=== PATIENT | female | born 1960 | race African-American/Black ===

== ENCOUNTER 2020-03-12 12:35 | Day surgery (SDC) | payer MEDICARE, OTHER ==
[2020-03-12] MEDS ORDERED: Sodium Chloride 0.9(Preservative Free) 10 ML IJ ONE (12:36)
[2020-03-12] MEDS ORDERED: Depo-Medrol 40 MG/ML IM ONE (12:36)
[2020-03-12] MEDS ORDERED: DIPRIVAN 200 MG/20 ML IV ONE (14:45)
[2020-03-12] MEDS ORDERED: Ketamine HCl 50 MG/ML ONE (14:45)
[2020-03-12] MEDS ORDERED: Lactated Ringers 1,000 ML IV ONE (15:57)
--- NOTE | 2020-03-12 16:40 | XRAY ---
Indication: Right L4-S1 transforaminal MOOKIE. Intraoperative fluoroscopy provided for 48 seconds. 4 digital spot images submitted for interpretation demonstrates posterior needle tips projecting over the expected right L4 and L5 nerve roots. Small amount of contrast injected for needle tip placement. Correlate with intraoperative findings/report. Incidental bilateral L4-S1 posterior spinal hardware.
--- NOTE | 2020-03-12 16:45 | XRAY ---
48 seconds of fluoroscopy was used in surgery for a right L4-L5 and L5-S1 transforaminal MOOKIE.
== END 2020-03-12 15:12 | disposition home or self-care (01) ==
LOC: SDC-PAIN 12:35
PROVIDERS: ATTEND Psychiatry & Neurology Pain Medicine
DX: M54.16 Radiculopathy, lumbar region (principal); I10 Essential (primary) hypertension; F41.8 Other specified anxiety disorders; Z79.899 Other long term (current) drug therapy
CPT/HCPCS: 64479; 64480; 72100; 77003; J1030; J2704; Q9966

== ENCOUNTER 2020-04-30 13:04 | Day surgery (SDC) | payer MEDICARE ==
[2020-04-30] MEDS ORDERED: Sodium Chloride 0.9(Preservative Free) 10 ML IJ ONE (13:05)
[2020-04-30] MEDS ORDERED: Depo-Medrol 40 MG/ML IM ONE (13:05)
[2020-04-30] MEDS ORDERED: Ketamine HCl 50 MG/ML ONE (14:23)
[2020-04-30] MEDS ORDERED: DIPRIVAN 200 MG/20 ML IV ONE ×2 (14:23→14:39)
[2020-04-30] MEDS ORDERED: Xylocaine-Mpf 2% 5 Ml Vial ONE (14:29)
[2020-04-30] MEDS ORDERED: TRANDATE 20 MG/4 ML SYRINGE IV ONE (14:47)
--- NOTE | 2020-04-30 15:11 | XRAY ---
Indication: Left L4-S1 transforaminal MOOKIE. Intraoperative fluoroscopy provided for 1 minute 18 seconds. 6 digital spot images submitted for interpretation demonstrates posterior needle tips projecting over the expected left L4 and L5 nerve roots. Small amount of contrast injected for needle tip placement. Correlate with intraoperative findings/report. Incidental bilateral L4-S1 posterior spinal hardware.
--- NOTE | 2020-04-30 15:20 | XRAY ---
1 minute and 18 seconds fluoroscopy time in surgery for left L4-S1 transforaminal MOOKIE.
[2020-04-30] MEDS ORDERED: Lactated Ringers 1,000 ML IV ONE (16:20)
== END 2020-04-30 15:59 | disposition home or self-care (01) ==
LOC: SDC-PAIN 13:04
PROVIDERS: ATTEND Psychiatry & Neurology Pain Medicine
DX: M54.16 Radiculopathy, lumbar region (principal); I10 Essential (primary) hypertension; F41.8 Other specified anxiety disorders; Z79.899 Other long term (current) drug therapy
CPT/HCPCS: 64483; 64484; 72100; 77003; J1030; J2704; Q9966

== ENCOUNTER 2020-09-10 12:06 | Day surgery (SDC) | payer MEDICARE ==
[2020-09-10] MEDS ORDERED: Depo-Medrol 40 MG/ML IM ONE (12:07)
[2020-09-10] MEDS ORDERED: BUPIVACAINE 0.5% VIAL IJ ONE (12:07)
[2020-09-10] MEDS ORDERED: DIPRIVAN 200 MG/20 ML IV ONE (13:23)
--- NOTE | 2020-09-10 14:28 | XRAY ---
Indication: Right knee injection. Intraoperative fluoroscopy provided for 9 seconds. Single digital spot image submitted for interpretation demonstrates needle tip projecting over the right femur intracondylar notch. Small amount of contrast injected for needle tip placement. Correlate with intraoperative findings/report.
--- NOTE | 2020-09-10 14:28 | XRAY ---
Indication: Left knee injection. Intraoperative fluoroscopy provided for 7 seconds. Single digital spot image submitted for interpretation demonstrates needle tip projecting over the left femur intracondylar notch. Small amount of contrast injected for needle tip placement. Correlate with intraoperative findings/report.
[2020-09-10] MEDS ORDERED: Lactated Ringers 1,000 ML IV ONE (14:55)
--- NOTE | 2020-09-10 15:13 | XRAY ---
9 seconds fluoroscopy time in surgery for intra-articular injection of the right knee.
--- NOTE | 2020-09-10 15:13 | XRAY ---
7 seconds fluoroscopy time in surgery for intra-articular injection of the left knee.
== END 2020-09-10 14:00 | disposition home or self-care (01) ==
LOC: SDC-PAIN 12:06
PROVIDERS: ATTEND Psychiatry & Neurology Pain Medicine
DX: M17.0 Bilateral primary osteoarthritis of knee (principal); Z79.899 Other long term (current) drug therapy
CPT/HCPCS: 20610; 73560; 77002; J1030; J2704; Q9966

== ENCOUNTER 2021-01-14 09:42 | Day surgery (SDC) | payer MEDICARE ==
[2021-01-14] MEDS ORDERED: Depo-Medrol 40 MG/ML IM ONE (09:43)
[2021-01-14] MEDS ORDERED: Sodium Chloride 0.9% 10 ML FLUSH Syringe IJ ONE (09:43)
[2021-01-14] MEDS ORDERED: DIPRIVAN 200 MG/20 ML IV ONE (11:51)
[2021-01-14] MEDS ORDERED: Lactated Ringers 1,000 ML IV ONE (12:17)
--- NOTE | 2021-01-14 13:40 | XRAY ---
Indication: Right L4-S1 transforaminal MOOKIE. Intraoperative fluoroscopy provided for 30 seconds. 6 digital spot image submitted for interpretation demonstrates posterior needle tips projecting over the expected right L4 and L5 nerve roots. Small amount of contrast injected for needle tip placement. Correlate with intraoperative findings/report. Incidental bilateral L4-S1 posterior spinal fusion hardware.
--- NOTE | 2021-01-14 13:49 | XRAY ---
30 seconds fluoroscopy time in surgery for right L4-S1 transforaminal MOOKIE.
== END 2021-01-14 12:31 | disposition home or self-care (01) ==
LOC: SDC-PAIN 09:42
PROVIDERS: ATTEND Psychiatry & Neurology Pain Medicine
DX: M54.16 Radiculopathy, lumbar region (principal); I10 Essential (primary) hypertension; Z79.899 Other long term (current) drug therapy
CPT/HCPCS: 64483; 64484; 72100; 77003; J1030; J2704; Q9966

== ENCOUNTER 2021-04-01 10:19 | Day surgery (SDC) | payer MEDICARE ==
[2021-04-01] MEDS ORDERED: Sodium Chloride 0.9% 10 ML FLUSH Syringe IJ ONE (10:20)
[2021-04-01] MEDS ORDERED: Xylocaine 1% Vial 30 ML PF IJ ONE (10:20)
[2021-04-01] MEDS ORDERED: Depo-Medrol 40 MG/ML IM ONE (10:20)
[2021-04-01] MEDS ORDERED: DIPRIVAN 200 MG/20 ML IV ONE ×2 (11:34→11:44)
[2021-04-01] MEDS ORDERED: Lactated Ringers 1,000 ML IV ONE (12:19)
--- NOTE | 2021-04-01 12:47 | XRAY ---
Indication: Lumbar MOOKIE. Intraoperative fluoroscopy provided for 35 seconds. 2 digital spot images submitted for interpretation demonstrates posterior needle tip projecting posterior to the L4-L5 interspace. Small amount of contrast injected for needle tip placement. Correlate with intraoperative findings/report.
--- NOTE | 2021-04-01 15:03 | XRAY ---
35 seconds fluoroscopy time in surgery for lumbar MOOKIE.
== END 2021-04-01 12:10 | disposition home or self-care (01) ==
LOC: SDC-PAIN 10:19
PROVIDERS: ATTEND Psychiatry & Neurology Pain Medicine
DX: M54.16 Radiculopathy, lumbar region (principal); I10 Essential (primary) hypertension; Z79.899 Other long term (current) drug therapy
CPT/HCPCS: 62321; 72100; 77003; J1030; J2001; J2704; Q9966